=== PATIENT | male | born 1990 | race Caucasian/White ===

== ENCOUNTER 2023-01-06 11:05 | Emergency (ER) | payer SELFPAY ==
[~2023-01-06] VITALS: Ht 185.4 cm; Wt 68.0 kg
[2023-01-06 11:14] VITALS: BP 145/94
[2023-01-06 12:00] VITALS: BP 127/87
[2023-01-06 13:00] VITALS: BP 112/81
[2023-01-06] MEDS ORDERED: METHOCARBAMOL500 MG PO ×2 (13:13→13:17)
[2023-01-06] MEDS ORDERED: NAPROXEN500 MG PO ×2 (13:13→13:17)
[2023-01-06 13:45] VITALS: BP 112/81
== END 2023-01-06 13:53 | disposition home or self-care (01) | DRG 563 ==
LOC: ED 11:05
PROC: 2W3AXYZ Immobilization of Right Upper Arm using Other Device (ICD-10-PCS; principal; 2023-01-06)
DX: S46.911A Strain of unspecified muscle, fascia and tendon at shoulder and upper arm level, right arm, initial encounter (principal); W18.30XA Fall on same level, unspecified, initial encounter

== ENCOUNTER 2023-03-16 12:34 | Emergency (ER) | payer SELFPAY ==
[~2023-03-16] VITALS: Ht 185.4 cm; Wt 70.3 kg
[~2023-03-16 12:34] MED LIST: METHOCARBAMOL500 MG PO; NAPROXEN500 MG PO
[2023-03-16 12:44] VITALS: BP 110/73
[2023-03-16] MEDS ORDERED: ZOFRAN4 MG/TAB PO (12:52)
[2023-03-16] MEDS ORDERED: LEVSIN0.125 M1 PO (12:52)
[2023-03-16 13:00] VITALS: BP 111/65
[2023-03-16 13:10] VITALS: BP 111/65
== END 2023-03-16 13:23 | disposition home or self-care (01) | DRG 392 ==
LOC: ED 12:34
DX: R10.84 Generalized abdominal pain (principal); R11.0 Nausea; F17.200 Nicotine dependence, unspecified, uncomplicated